=== PATIENT | male | born 1950 | race Caucasian/White ===

== ENCOUNTER 2021-03-19 17:49 | Inpatient (IN) | payer MEDICARE, OTHER ==
[~2021-03-19] VITALS: Ht 170.2 cm; Wt 99.8 kg
[~2021-03-19 17:49] MED LIST: ALDACTONE25 MG PO; ASPIRIN CHEWABL81 MG PO; COREG 3.125M3.125 MG PO; GLUCOPHAGE XR500 MG PO; IMDUR ER TAB 3030 MG PO; LEVAQUIN500 MG PO; LISINOPRIL10 MG PO; MEXILETINE HCL200 MG PO; NITROSTAT0.4 MG SL; PROTONIX40 MG PO; SIMVASTATIN20 MG PO; TYLENOL W/CODEIN1 E1 PO
[2021-03-19 18:43] LABS: HEMOGLOBIN 15.3 gm/dl (14.0-17.5); RED BLOOD COUNT 5.49 M/UL (4.20-5.50); WHITE BLOOD COUNT 10.5 K/UL (4.5-11.0)
[2021-03-19 18:58] LABS: BUN/CREATININE RATIO 11 (0-10)
[2021-03-20] MEDS ORDERED: MEXILETINE HCL200 MG PO ×3 (02:06)
[2021-03-20] MEDS ORDERED: METOPROLOL TART25 MG PO (02:08)
[2021-03-20 07:58] LABS: HEMOGLOBIN 16.8 gm/dl (14.0-17.5); WHITE BLOOD COUNT 9.3 K/UL (4.5-11.0)
[2021-03-20 08:00] LABS: RED BLOOD COUNT 6.09 M/UL (4.20-5.50)
[2021-03-20 08:23] LABS: BUN/CREATININE RATIO 11 (0-10)
[2021-03-21 03:43] LABS: HEMOGLOBIN 15.4 gm/dl (14.0-17.5); RED BLOOD COUNT 5.51 M/UL (4.20-5.50)
[2021-03-21 03:44] LABS: WHITE BLOOD COUNT 12.4 K/UL (4.5-11.0)
[2021-03-21 04:16] LABS: BUN/CREATININE RATIO 12 (0-10)
[2021-03-22 09:25] LABS: HEMOGLOBIN 14.2 gm/dl (14.0-17.5); RED BLOOD COUNT 5.11 M/UL (4.20-5.50); WHITE BLOOD COUNT 10.4 K/UL (4.5-11.0)
[2021-03-22] MEDS ORDERED: METOPROLOL SUCC50 MG PO (17:22)
[2021-03-22] MEDS ORDERED: AMIODARONE HCL200 MG PO (17:22)
[2021-03-22] MEDS ORDERED: ATORVASTATIN CA20 MG PO (17:22)
[2021-03-22] MEDS ORDERED: MEXILETINE HCL200 MG PO (17:22)
[2021-03-22] MEDS ORDERED: LISINOPRIL10 MG PO (17:22)
[2021-03-22] MEDS ORDERED: BRILINTA 90 MG90 MG PO (17:22)
[2021-03-23 10:15] LABS: HEMOGLOBIN 13.8 gm/dl (14.0-17.5); RED BLOOD COUNT 4.98 M/UL (4.20-5.50); WHITE BLOOD COUNT 10.4 K/UL (4.5-11.0)
[2021-03-23] MEDS ORDERED: AMIODARONE HCL200 MG PO ×2 (15:26→15:28)
== END 2021-03-23 16:45 | disposition home or self-care (01) | DRG 246 ==
LOC: ER1 17:49 → CDU 18:46 → PROG CARE 03-20 15:04
PROVIDERS: Emergency Medicine; Internal Medicine; Internal Medicine Cardiovascular Disease; ADMIT Internal Medicine
PROC: B24BZZ4 Ultrasonography of Heart with Aorta, Transesophageal (ICD-10-PCS; 2021-03-19)
PROC: 027034Z Dilation of Coronary Artery, One Artery with Drug-eluting Intraluminal Device, Percutaneous Approach (ICD-10-PCS; principal; 2021-03-20)
DX: I47.2 Ventricular tachycardia (principal); I21.4 Non-ST elevation (NSTEMI) myocardial infarction; I50.32 Chronic diastolic (congestive) heart failure; Z20.822 Contact with and (suspected) exposure to COVID-19; K21.9 Gastro-esophageal reflux disease without esophagitis; B19.20 Unspecified viral hepatitis C without hepatic coma; E11.9 Type 2 diabetes mellitus without complications; E78.5 Hyperlipidemia, unspecified; K74.60 Unspecified cirrhosis of liver; F17.210 Nicotine dependence, cigarettes, uncomplicated; E83.39 Other disorders of phosphorus metabolism; E83.42 Hypomagnesemia; I49.5 Sick sinus syndrome; I08.1 Rheumatic disorders of both mitral and tricuspid valves; I11.0 Hypertensive heart disease with heart failure; I25.5 Ischemic cardiomyopathy; I25.2 Old myocardial infarction; Z86.73 Personal history of transient ischemic attack (TIA), and cerebral infarction without residual deficits; Z79.4 Long term (current) use of insulin; Z95.810 Presence of automatic (implantable) cardiac defibrillator; Z90.49 Acquired absence of other specified parts of digestive tract; Z95.1 Presence of aortocoronary bypass graft; Z95.0 Presence of cardiac pacemaker; Z79.82 Long term (current) use of aspirin; Z83.3 Family history of diabetes mellitus; Z82.49 Family history of ischemic heart disease and other diseases of the circulatory system; Z80.9 Family history of malignant neoplasm, unspecified; Z95.5 Presence of coronary angioplasty implant and graft
CPT/HCPCS: ECHO; 36415; 71045; 80053; 82550; 82553; 82962; 83036; 83735; 83874; 83880; 84100; 84439; 84443; 84484; 85025; 85027; 85347; 85610; 85730; 93005; 93306; 96374; 99152; 99153; 99285; C1725; C1753; C1769; C1874; C1887; C9600; G0378; J1644; J2405; J3475; J7040; U0002

== ENCOUNTER 2021-04-11 02:31 | Emergency (ER) | payer MEDICARE, OTHER ==
[~2021-04-11 02:31] MED LIST changes: +AMIODARONE HCL200 MG PO; +ATORVASTATIN CA20 MG PO; +BRILINTA 90 MG90 MG PO; +METOPROLOL SUCC50 MG PO; +METOPROLOL TART25 MG PO
[2021-04-11 03:23] LABS: HEMOGLOBIN 16.3 gm/dl (14.0-17.5); RED BLOOD COUNT 5.87 M/UL (4.20-5.50); WHITE BLOOD COUNT 10.4 K/UL (4.5-11.0)
[2021-04-11 03:42] LABS: BUN/CREATININE RATIO 11 (0-10)
== END 2021-04-11 06:30 | disposition home or self-care (01) ==
LOC: ER1 02:31
DX: R07.9 Chest pain, unspecified (principal); E11.9 Type 2 diabetes mellitus without complications; I10 Essential (primary) hypertension; F17.200 Nicotine dependence, unspecified, uncomplicated; Z79.82 Long term (current) use of aspirin; Z79.84 Long term (current) use of oral hypoglycemic drugs; Z79.899 Other long term (current) drug therapy
CPT/HCPCS: 71045; 80053; 82550; 82553; 83874; 84484; 85025; 93005; 99285

== ENCOUNTER 2022-03-03 08:40 | Inpatient (IN) | payer MEDICARE, OTHER ==
[~2022-03-03] VITALS: Ht 170.2 cm; Wt 64.0 kg
[2022-03-03 09:25] LABS: HEMOGLOBIN 13.7 gm/dl (14.0-17.5); RED BLOOD COUNT 4.93 M/UL (4.20-5.50); WHITE BLOOD COUNT 6.9 K/UL (4.5-11.0)
[2022-03-03 09:53] LABS: BUN/CREATININE RATIO 13 (0-10)
[2022-03-03] MEDS ORDERED: VITAMIN D21250 MCG PO (16:45)
[2022-03-03] MEDS ORDERED: MEXILETINE HCL200 MG PO ×2 (16:51→16:52)
[2022-03-03] MEDS ORDERED: METFORMIN HCL500 M2 PO (16:55)
[2022-03-03] MEDS ORDERED: LEVOTHYROXINE25 MCG PO (16:56)
[2022-03-04 06:13] LABS: HEMOGLOBIN 13.2 gm/dl (14.0-17.5); RED BLOOD COUNT 4.91 M/UL (4.20-5.50); WHITE BLOOD COUNT 6.3 K/UL (4.5-11.0)
[2022-03-04 12:10] LABS: HEMOGLOBIN 13.8 gm/dl (14.0-17.5); WHITE BLOOD COUNT 7.3 K/UL (4.5-11.0)
[2022-03-05 06:39] LABS: RED BLOOD COUNT 4.72 M/UL (4.20-5.50); WHITE BLOOD COUNT 8.1 K/UL (4.5-11.0)
[2022-03-06 07:24] LABS: HEMOGLOBIN 13.5 gm/dl (14.0-17.5); RED BLOOD COUNT 5.06 M/UL (4.20-5.50); WHITE BLOOD COUNT 10.1 K/UL (4.5-11.0)
[2022-03-07 03:16] LABS: BUN/CREATININE RATIO 26 (0-10)
[2022-03-07 03:29] LABS: HEMOGLOBIN 13.4 gm/dl (14.0-17.5); RED BLOOD COUNT 4.84 M/UL (4.20-5.50); WHITE BLOOD COUNT 10.8 K/UL (4.5-11.0)
[2022-03-08 06:24] LABS: HEMOGLOBIN 13.5 gm/dl (14.0-17.5); RED BLOOD COUNT 4.9 M/UL (4.20-5.50); WHITE BLOOD COUNT 10.8 K/UL (4.5-11.0)
[2022-03-08 07:19] LABS: BUN/CREATININE RATIO 26 (0-10)
[2022-03-09 10:27] LABS: HEMOGLOBIN 14.1 gm/dl (14.0-17.5); RED BLOOD COUNT 5.03 M/UL (4.20-5.50)
[2022-03-09 10:33] LABS: WHITE BLOOD COUNT 15.4 K/UL (4.5-11.0)
[2022-03-09 10:48] LABS: BUN/CREATININE RATIO 24 (0-10)
[2022-03-10 05:59] LABS: HEMOGLOBIN 13.1 gm/dl (14.0-17.5); RED BLOOD COUNT 4.71 M/UL (4.20-5.50)
[2022-03-11 03:43] LABS: RED BLOOD COUNT 4.72 M/UL (4.20-5.50); WHITE BLOOD COUNT 11.8 K/UL (4.5-11.0)
[2022-03-11 04:17] LABS: BUN/CREATININE RATIO 24 (0-10)
[2022-03-11] MEDS ORDERED: CHRONULAC20 GM/30 M PO (09:58)
[2022-03-11] MEDS ORDERED: PROAIR HFA8.5 GM INH (09:58)
--- NOTE | 2022-03-11 12:42 | NUR ---
REPORT CALLED TO MELODIE AT THE [facility], PATIENT WILL BE GOING TO ROOM 324. PATIENT IV REMOVED, CATHETER TIP INTACT. PRESSURE APPLIED WITH GAUZE AND TAPE. PATIENT FAMILY NOTIFIED. AWAITING AMBULANCE.
== END 2022-03-11 21:43 | DRG 177 ==
LOC: ER1 08:40 → CDU 12:47 → MED SURG 4 12:47
PROVIDERS: Emergency Medicine; Internal Medicine; Physician Assistant Medical; ADMIT Internal Medicine
PROC: 8E0ZXY6 Isolation (ICD-10-PCS; principal; 2022-03-03)
PROC: 3E0333Z Introduction of Anti-inflammatory into Peripheral Vein, Percutaneous Approach (ICD-10-PCS; 2022-03-03)
DX: U07.1 COVID-19 (principal); G93.41 Metabolic encephalopathy; N17.9 Acute kidney failure, unspecified; I50.22 Chronic systolic (congestive) heart failure; I13.0 Hypertensive heart and chronic kidney disease with heart failure and stage 1 through stage 4 chronic kidney disease, or unspecified chronic kidney disease; N20.0 Calculus of kidney; K59.00 Constipation, unspecified; E78.5 Hyperlipidemia, unspecified; I25.5 Ischemic cardiomyopathy; B18.2 Chronic viral hepatitis C; I25.10 Atherosclerotic heart disease of native coronary artery without angina pectoris; F17.200 Nicotine dependence, unspecified, uncomplicated; I49.5 Sick sinus syndrome; K74.60 Unspecified cirrhosis of liver; F03.90 Unspecified dementia, unspecified severity, without behavioral disturbance, psychotic disturbance, mood disturbance, and anxiety; R74.01 Elevation of levels of liver transaminase levels; N18.30 Chronic kidney disease, stage 3 unspecified; R53.81 Other malaise; E11.22 Type 2 diabetes mellitus with diabetic chronic kidney disease; R94.5 Abnormal results of liver function studies; Z95.810 Presence of automatic (implantable) cardiac defibrillator; Z90.49 Acquired absence of other specified parts of digestive tract; Z98.890 Other specified postprocedural states; Z95.5 Presence of coronary angioplasty implant and graft; Z79.82 Long term (current) use of aspirin; Z79.84 Long term (current) use of oral hypoglycemic drugs; I25.2 Old myocardial infarction; Z86.73 Personal history of transient ischemic attack (TIA), and cerebral infarction without residual deficits
CPT/HCPCS: 0240U; 36415; 70450; 71045; 76705; 80048; 80053; 81001; 82140; 82550; 82553; 82962; 83605; 83690; 83735; 84100; 84484; 85025; 85027; 85610; 93005; 94640; 94664; 94760; 96374; 96375; 97110-GP-CQ; 97116-GP-CQ; 97161; 97165; 97530; 97530-GP-CQ; 99285; G0378; J1100; J1650; J2405

== ENCOUNTER → 2022-04-20 | Outpatient (CLI) | payer MEDICARE, OTHER ==
[~2022-04-20] MED LIST changes: +CHRONULAC20 GM/30 M PO; +LEVOTHYROXINE25 MCG PO; +METFORMIN HCL500 M2 PO; +PROAIR HFA8.5 GM INH; +VITAMIN D21250 MCG PO
== END ==
LOC: HEART 5 15:39
DX: R06.02 Shortness of breath (principal); Z79.899 Other long term (current) drug therapy; R94.2 Abnormal results of pulmonary function studies
CPT/HCPCS: 94060; 94729